=== PATIENT | female | born 1975 | race Caucasian/White ===

== ENCOUNTER 2017-11-02 12:16 | Inpatient (IN) | payer OTHER ==
[~2017-11-02] VITALS: Ht 157.5 cm; Wt 116.0 kg
[2017-11-02] VITALS (69 sets, daily range): BP systolic 95–151; BP diastolic 45–94; PULSE 65–108; RESP 16–22; TEMP 97.5–98.9
[~2017-11-02 12:16] MED LIST: IBUP600 PO; OXYC1SOL5 PO; PERI8.6T PO; PREN0.01 PO
[2017-11-02] MEDS ORDERED: LACTATED RINGER'S 1000 ML INJ 1,000 ML IV PRN (12:53)
[2017-11-02] MEDS ORDERED: OXYTOCIN 30 UNITS-500ML PREMIX 500 ML IV ONE (13:00)
[2017-11-02] MEDS ORDERED: OXYTOCIN 30 UNITS-500ML PREMIX 500 ML IV SCH ×2 (13:00→22:45)
[2017-11-02] MEDS ORDERED: CITRIC ACID-SODIUM CITRATE LIQ 30 ML UDC PO SCH (13:00)
[2017-11-02] MEDS ORDERED: MINERAL OIL 10 ML VIAL TOPICAL PRN (13:00)
[2017-11-02] MEDS ORDERED: LIDOCAINE HCL 1% 50 ML VIAL I-DERMAL PRN (13:00)
[2017-11-02] MEDS ORDERED: SODIUM CHLORID 0.9% 500 ML INJ 500 ML IV PRN (13:00)
[2017-11-02] MEDS ORDERED: LIDOCAINE HCL 1% 50 ML VIAL INFIL PRN (13:00)
[2017-11-02] MEDS ORDERED: SODIUM CHLOR 0.9% 1000 ML INJ 1,000 ML IV PRN (13:13)
[2017-11-02] MEDS ORDERED: PRENCHW (13:14)
[2017-11-02] MEDS: LACTATED RINGER'S 1000 ML INJ 1,000 ML IV SCH ×2 (13:16→16:12)
[2017-11-02 13:21] LABS: AUTOMATED NEUTROPHIL # 5.8 TH/MM3 (1.8-7.7); BASOPHIL % 0.3 % (0.0-2.0); EOSINOPHIL # 0.2 TH/MM3 (0-0.4); EOSINOPHIL % 2.1 % (0.0-4.0); HEMATOCRIT 34.9 % (35.0-46.0); HEMO FLAGS DIFF FINAL; LYMPH % 23.3 % (9.0-44.0); MEAN CELL VOLUME 83.8 FL (80.0-100.0); MEAN CORPUSCULAR HGB CONC 33.4 % (32.0-36.0); MONO % 6.3 % (0.0-8.0); PLATELET COUNT 178 TH/MM3 (150-450); RED BLOOD COUNT 4.17 MIL/MM3 (4.00-5.30); RED CELL DISTRIBUTION WIDTH 15.5 % (11.6-17.2); WHITE BLOOD COUNT 8.5 TH/MM3 (4.0-11.0)
[2017-11-02 13:29] LABS: BACTERIA, URINE FEW /hpf; BLOOD, URINE SMALL (NEG); COMMENT (UR) CULTURE INDICATED; CULTURE IF INDICATED CULTURE INDICATED; GLUCOSE,URINE NEG (NEG); KETONE, URINE NEG (NEG); MUCUS URINE FEW /lpf (OCC); NITRITE,URINE NEG (NEG); SQUAMOUS EPITHELIAL CELL URINE 28 /hpf (0-5); TRANSITIONAL EPI CELLS, URINE 1 /hpf; URINE COLOR YELLOW (YELLW/STRAW)
[2017-11-02] MEDS ORDERED: DIPHTH/TETANUS/ACEL PERTUSSIS (BOOSTER) 0.5 ML VIAL/PFS IM ONE (16:00)
[2017-11-02] MEDS ORDERED: MEASLES, MUMPS, RUBELLA VACCINE 0.5 ML VIAL SQ ONE (16:00)
[2017-11-02] MEDS ORDERED: fentaNYL 2MCG-BUPIV 0.125% INJ 100 ML ONE (16:07)
[2017-11-02] MEDS ORDERED: ePHEDrine/NS 25 MG/5 ML SYR ONE (16:08)
[2017-11-02] MEDS ORDERED: NO SYSTEM NARCOTICS PRN (17:00)
[2017-11-02] MEDS ORDERED: DO NOT ADMINISTER ANTICOAGULANTS PRN (17:00)
[2017-11-02] MEDS ORDERED: ePHEDrine/NS 25 MG/5 ML SYR IV PUSH PRN (17:00)
[2017-11-02] MEDS ORDERED: fentaNYL 2MCG-BUPIV 0.125% 100 ML EPIDURAL SCH (17:00)
--- NOTE | 2017-11-02 18:19 | HHI.HP ---
HPI Chief Complaint 38 wek IUP with hx of third trimester IUFD, low fluid and favorable Gomez's score Date Seen: Nov 02, 2017 Time Seen: 11:00 Travel History International Travel<30 Days: No Contact w/Intl Traveler<30Days: No Known Affected Area: No History of Present Illness HPI 42 yo mowf at 38 weeks by 8 weeks sonogroam oand 39 weeks by good LMP admitted for AROM and delivery. Had IUFD about 33 weeks last with no known etiology. surveillance of this infant reassuring but CHELSI 5 today. Cervix 3/50/-2 brought in for AROM. No leaking, bleeding. Mild UCs GFM. No symptoms of pre eclampsia. Class A1GDM well controlled on diet. 10 pound weight gain but increased baseline BMI. Had section for the breech IUFD after prolonged attempt to delivery vaginally. Desires History Past Medical History Narrative Medical as described Past Surgical History Narrative Surgical Section right oopherectomy Family History Family History: Negative Social History Alcohol Use: No Tobacco Use: No Substance Abuse: No Allergies-Medications (Allergen,Severity, Reaction): Coded Allergies: No Known Allergies (Verified Allergy, Unknown, 11/02/17) Home Meds Reported Medications Vit W/ Ferrous Fumara ( 19) 29 Mg Iron-1 Mg Chw 11/02/17 Discontinued Reported Medications Multivit/Min/Fol Ac/Iron/Pren ( Vit ( Plus)) Tab, 1 TAB PO DAILY, TAB 08/02/13 Discontinued Scripts Sennosides-Docusate Sodium (Heather-Colace 8.6-50 mg) 1 Tab Tab, 2 TAB PO Q12H Y for CONSTIPATION, #28 TAB 1 Refill Prov:Afua Puentes MD 12/19/15 Oxycodone W/ Acetaminophen (Oxycodone/Acetaminophen 5-325 mg/5Ml) 1 Tab Tab, 1 TAB PO Q4H Y for PAIN SCALE 1 TO 4, #30 TAB 0 Refills Prov:Afua Puentes MD 12/19/15 Ibuprofen (Motrin 600 Mg Tab) 600 Mg Tab, 600 MG PO Q6H Y for CRAMPING, #30 TAB 1 Refill Prov:Afua Puentes MD 1/27/16 Review of Systems General / Constitutional: No: Fever, Weight Gain, Chills, Other Physical Exam Vital Signs Date Time Temp Pulse Resp B/P (MAP) Pulse Ox O2 Delivery O2 Flow Rate FiO2 11/02/17 18:00 72 11/02/17 17:55 75 11/02/17 17:50 80 11/02/17 17:49 98.0 11/02/17 17:45 84 11/02/17 17:40 86 11/02/17 17:35 79 11/02/17 17:30 80 11/02/17 17:25 77 11/02/17 17:20 87 11/02/17 17:16 74 102/45 (64) 11/02/17 17:15 78 11/02/17 17:10 82 11/02/17 17:05 78 11/02/17 17:01 78 104/47 (66) 11/02/17 17:00 88 11/02/17 16:55 84 11/02/17 16:50 82 11/02/17 16:46 83 121/60 (80) 11/02/17 16:45 92 11/02/17 16:43 89 125/64 (84) 11/02/17 16:40 85 11/02/17 16:40 90 115/65 (82) 11/02/17 16:39 88 95/75 (82) 11/02/17 16:35 86 11/02/17 16:34 87 134/85 (101) 11/02/17 16:32 76 139/94 (109) 11/02/17 16:30 80 11/02/17 16:25 85 11/02/17 16:15 18 11/02/17 16:15 70 123/74 (90) 11/02/17 16:00 98.4 11/02/17 15:30 74 116/82 (93) 11/02/17 15:00 72 119/66 (83) 11/02/17 15:00 72 119/66 (83) 11/02/17 14:30 98.1 11/02/17 14:21 16 11/02/17 14:20 73 126/78 (94) 11/02/17 12:45 97.5 18 Narrative GENERAL: Well-nourished, well-developed patient. SKIN: Warm and dry. HEAD: Normocephalic and atraumatic. EYES: No scleral icterus. No injection or drainage. ENT: No nasal drainage noted. Mucous membranes pink. Airway patent. NECK: Supple, trachea midline. No JVD. CARDIOVASCULAR: Regular rate and rhythm without murmurs, gallops, or rubs. RESPIRATORY: Breath sounds equal bilaterally. No accessory muscle use. BREASTS: Bilateral exam showed no masses , no retractions, no nipple discharge. ABDOMEN/GI: Abdomen soft, non-tender, bowel sounds present, no rebound, no guarding 40 cm 3 cm/50/-1EFW 7 pounds vertex AROM clear at 1:00 Strip category one EXTREMITIES: No cyanosis or edema. BACK: Nontender without obvious deformity. No CVA tenderness. NEUROLOGICAL: Awake and alert. Motor and sensory grossly within normal limits. Five out of 5 muscle strength in all muscle groups. Normal speech. Caprini VTE Risk Assessment Caprini VTE Risk Assessment: No/Low Risk (score <= 1) Caprini Risk Assessment Model Point Value = 1 Point Value = 2 Point Value = 3 Point Value = 5 Age 41-60 Minor surgery BMI > 25 kg/m2 Swollen legs Varicose veins or History of unexplained or recurrent spontaneous Oral contraceptives or hormone replacement Sepsis (< 1 month) Serious lung disease, including pneumonia (< 1 month) Abnormal pulmonary function Acute myocardial infarction Congestive heart failure (< 1 month) History of inflammatory bowel disease Medical patient at bed rest Age 61-74 Arthroscopic surgery Major open surgery (> 45 min) Laparoscopic surgery (> 45 min) Malignancy Confined to bed (> 72 hours) Immobilizing plaster cast Central venous access Age >= 75 History of VTE Family history of VTE Factor V Leiden Prothrombin [id number] Lupus anticoagulant Anticardiolipin antibodies Elevated serum homocysteine Heparin-induced thrombocytopenia Other congenital or acquired thrombophilia Stroke (< 1 month) Elective arthroplasty Hip, pelvis, or leg fracture Acute spinal cord injury (< 1 month) Prophylaxis Regimen Total Risk Factor Score Risk Level Prophylaxis Regimen 0-1 Low Early ambulation 2 Moderate Order ONE of the following: *Sequential Compression Device (SCD) *Heparin 5000 units SQ BID 3-4 Higher Order ONE of the following medications: *Heparin 5000 units SQ TID *Enoxaparin/Lovenox 40 mg SQ daily (WT < 150 kg, CrCl > 30 mL/min) *Enoxaparin/Lovenox 30 mg SQ daily (WT < 150 kg, CrCl > 10-29 mL/min) *Enoxaparin/Lovenox 30 mg SQ BID (WT < 150 kg, CrCl > 30 mL/min) AND/OR *Sequential Compression Device (SCD) 5 or more Highest Order ONE of the following medications: *Heparin 5000 units SQ TID (Preferred with Epidurals) *Enoxaparin/Lovenox 40 mg SQ daily (WT < 150 kg, CrCl > 30 mL/min) *Enoxaparin/Lovenox 30 mg SQ daily (WT < 150 kg, CrCl > 10-29 mL/min) *Enoxaparin/Lovenox 30 mg SQ BID (WT < 150 kg, CrCl > 30 mL/min) AND *Sequential Compression Device (SCD) Data Data Orders Orders Admit To Inpatient (11/02/17 ) Code Status (11/02/17 12:53) Vital Signs (Adult) .Per protocol (11/02/17 12:53) Heart (11/02/17 12:53) Amnioinfusion (11/02/17 12:53) Urinary Catheter Management .ONCE (11/02/17 12:53) Diet Liquid (11/02/17 Lunch) Lactated Ringer's 1000 Ml Inj (Lr 1000 M (11/02/17 12:53) Lactated Ringer's 1000 Ml Inj (Lr 1000 M (11/02/17 12:53) Sodium Chlorid 0.9% 500 Ml Inj (Ns 500 M (11/02/17 13:00) Sodium Chlor 0.9% 1000 Ml Inj (Ns 1000 M (11/02/17 13:13) Lidocaine 1% Inj (50 Ml) (Xylocaine 1% I (11/02/17 13:00) Citric Acid-Sodium Citrate Liq (Bicitra (11/02/17 13:00) Fentanyl Inj (Fentanyl Inj) (11/02/17 13:00) Fentanyl Inj (Fentanyl Inj) (11/02/17 13:00) Complete Blood Count With Diff (11/02/17 12:53) Hold Clot (11/02/17 12:53) Abo/Rh Blood Type (11/02/17 12:53) Urinalysis - C+S If Indicated (11/02/17 12:53) Drug Screen, Random Urine (11/02/17 12:53) Resp Oxygen Non Rebreathe Mask (11/02/17 ) ^ Epidural / Intrathecal Infus (11/02/17 12:53) Oxytocin 30 Units-500ml Premix (Pitocin (11/02/17 13:00) Lidocaine 1% Inj (50 Ml) (Xylocaine 1% I (11/02/17 13:00) Light Mineral Oil (Muri-Lube Oil) (11/02/17 13:00) ^ Non Stress Test (11/02/17 12:53) Response To Medication .Post New Med Administration, Reaction (11/02/17 12:53) ^ Discontinue Medication (11/02/17 12:53) Oxytocin 30 Units-500ml Premix (Pitocin (11/02/17 13:00) Inpatient Certification (11/02/17 ) Specimen To Be Collected PRN (11/02/17 12:53) Specimen To Be Collected PRN (11/02/17 12:53) Urine Culture (11/02/17 12:55) Fentanyl 2mcg-Bupiv 0.125% Inj (Fentanyl (11/02/17 16:07) Ephedrine/Ns 25 Mg/5 Ml Syr (Ephedrine/N (11/02/17 16:08) Misc Nursing Information (11/02/17 17:00) Mis Nursing Information (11/02/17 17:00) Fentanyl Inj (Fentanyl Inj) (11/02/17 17:00) Fentanyl 2mcg-Bupiv 0.125% Inj (Fentanyl (11/02/17 17:00) Ephedrine/Ns 25 Mg/5 Ml Syr (Ephedrine/N (11/02/17 17:00) ^ Place On Chart (11/02/17 ) ^ Medication Indications (11/02/17 ) Consent (11/02/17 ) ^ No Systemic Narcotics (11/02/17 ) ^ Call Anesthesiologist (11/02/17 ) ^ Discontinue Epidural Cathete (11/02/17 ) Anticoagulant Alert (11/02/17 ) ^ Epidural Alert (11/02/17 ) Labs Laboratory Tests Test 11/02/17 12:55 White Blood Count 8.5 Red Blood Count 4.17 Hemoglobin 11.7 Hematocrit 34.9 Mean Corpuscular Volume 83.8 Mean Corpuscular Hemoglobin 28.0 Mean Corpuscular Hemoglobin Concent 33.4 Red Cell Distribution Width 15.5 Platelet Count 178 Mean Platelet Volume 8.7 Neutrophils (%) (Auto) 68.0 Lymphocytes (%) (Auto) 23.3 Monocytes (%) (Auto) 6.3 Eosinophils (%) (Auto) 2.1 Basophils (%) (Auto) 0.3 Neutrophils # (Auto) 5.8 Lymphocytes # (Auto) 2.0 Monocytes # (Auto) 0.5 Eosinophils # (Auto) 0.2 Basophils # (Auto) 0.0 CBC Comment DIFF FINAL Differential Comment Urine Color YELLOW Urine Turbidity HAZY Urine pH 7.0 Urine Specific [place] 1.017 Urine Protein TRACE Urine Glucose (UA) NEG Urine Ketones NEG Urine Occult Blood SMALL Urine Nitrite NEG Urine Bilirubin NEG Urine Urobilinogen LESS THAN 2.0 Urine Leukocyte Esterase LARGE Urine RBC 5 Urine WBC Urine Squamous Epithelial Cells 28 Urine Transitional Epithelial Cells 1 Urine Bacteria FEW Urine Mucus FEW Microscopic Urinalysis Comment CULTURE INDICATED Urine Opiates Screen NEG Urine Barbiturates Screen NEG Urine Amphetamines Screen NEG Urine Benzodiazepines Screen NEG Urine Cocaine Screen NEG Urine Cannabinoids Screen NEG Date/Time Source Procedure Growth Status 11/02/17 12:55 Urine Clean Catch Urine Culture Pending Received Assessment/Plan Problem List: (1) Obesity ICD Codes: E66.9 - Obesity Status: Acute (2) affecting management of mother ICD Codes: O36.4XX0 - Maternal care for intrauterine , not applicable or unspecified Status: Acute (3) Gestational diabetes ICD Codes: O24.419 - Gestational diabetes mellitus in , unspecified control Status: Acute (4) Status post primary low transverse section ICD Codes: Z98.89 - Other specified postprocedural states Status: Acute Assessment and Plan Anticipate successful TOLAC pitocin, epidural as needed. Nola Roger MD Nov 02, 2017 18:19
--- NOTE | 2017-11-02 18:21 | PD.LABORPN ---
Subjective Subjective comfortable after epidural Objective Vital Signs Vital Signs Date Time Temp Pulse Resp B/P (MAP) Pulse Ox O2 Delivery O2 Flow Rate FiO2 11/02/17 18:00 72 11/02/17 17:55 75 11/02/17 17:50 80 11/02/17 17:49 98.0 11/02/17 17:45 84 11/02/17 17:40 86 11/02/17 17:35 79 11/02/17 17:30 80 11/02/17 17:25 77 11/02/17 17:20 87 11/02/17 17:16 74 102/45 (64) 11/02/17 17:15 78 11/02/17 17:10 82 11/02/17 17:05 78 11/02/17 17:01 78 104/47 (66) 11/02/17 17:00 88 11/02/17 16:55 84 11/02/17 16:50 82 11/02/17 16:46 83 121/60 (80) 11/02/17 16:45 92 11/02/17 16:43 89 125/64 (84) 11/02/17 16:40 85 11/02/17 16:40 90 115/65 (82) 11/02/17 16:39 88 95/75 (82) 11/02/17 16:35 86 11/02/17 16:34 87 134/85 (101) 11/02/17 16:32 76 139/94 (109) 11/02/17 16:30 80 11/02/17 16:25 85 11/02/17 16:15 18 11/02/17 16:15 70 123/74 (90) 11/02/17 16:00 98.4 11/02/17 15:30 74 116/82 (93) 11/02/17 15:00 72 119/66 (83) 11/02/17 15:00 72 119/66 (83) 11/02/17 14:30 98.1 11/02/17 14:21 16 11/02/17 14:20 73 126/78 (94) 11/02/17 12:45 97.5 18 Objective 80%/5-6/-1 strip category one Weeks Gestation: 39 Gest Age Assessed Date: Nov 02, 2017 Gest Age Assessed Time: 18:20 Pt started active labor?: Yes Active labor start date: Nov 02, 2017 Active labor start time: 13:00 Medical induction of labor?: Yes Medical induction start date: Nov 02, 2017 Medical induction start time: 13:00 Artificial rupture of membrane: Yes Artificial ROM date: Nov 02, 2017 Artifical ROM time: 13:00 Assessment/Plan Problem List: (1) Obesity ICD Codes: E66.9 - Obesity Status: Acute (2) affecting management of mother ICD Codes: O36.4XX0 - Maternal care for intrauterine , not applicable or unspecified Status: Acute (3) Gestational diabetes ICD Codes: O24.419 - Gestational diabetes mellitus in , unspecified control Status: Acute (4) Status post primary low transverse section ICD Codes: Z98.89 - Other specified postprocedural states Status: Acute Nola Roger MD Nov 02, 2017 18:21
[2017-11-02] MEDS ORDERED: LIDOCAINE HCL 1.5% PF SOLN 20 ML AMP ONE (21:32)
--- NOTE | 2017-11-02 22:31 | PD.OB.DELI ---
Weeks gestation: 39 Gest age assessed date: Nov 02, 2017 Gest age assessed time: 18:20 Pt started active labor?: Yes Active labor start date: Nov 02, 2017 Active labor start time: 13:00 Medical induction of labor?: Yes Medical induction start date: Nov 02, 2017 Medical induction start time: 13:00 Artificial rupture of membrane: Yes Artificial ROM date: Nov 02, 2017 Artifical ROM time: 13:00 Anesthesia: Epidural Episiotomy: None Vaginal Delivery: Normal Presentation: Occiput anterior Nuchal Cord: x1 Delayed cord clamping (45 sec): No : Female Delivery date: Nov 02, 2017 Delivery time: 22:28 One Minute : 4 Five Minute : 8 Weight: 7 Placenta: Spontaneous delivery Laceration: No lacerations Estimated blood loss: 300 Additional Information tight nuchal cord resulted in terminal bradycardia and mom pushed once to deliver over intact pelvis. resuscitation quickly successful. Cord gas pending Mom and baby well Situation reviewed with parents Nola Roger MD Nov 02, 2017 22:31
[2017-11-02 22:37] LABS: BLOOD GAS BASE EXCESS -3.5 mmol/L (-2-2); BLOOD GAS O2 HGB SATURATION 86 % (90-100); CORD BLOOD GAS HCO3 20 mmol/L (21-29); CORD BLOOD GAS PCO2 30 mmHG (34-78); CORD BLOOD GAS PH 7.44 (7.14-7.42); CORD BLOOD GAS PO2 44 mmHG (3.0-40.0); DRAW SITE CORD BLOOD; STAT NO
[2017-11-02] MEDS ORDERED: WITCH HAZEL 50%/GLYCERIN 12.5% 40 PAD JAR TOPICAL PRN (22:45)
[2017-11-02] MEDS ORDERED: ACETAMINOPHEN 325 MG TAB PO PRN (22:45)
[2017-11-02] MEDS ORDERED: ONDANSETRON ODT 4 MG TAB PO PRN (22:45)
[2017-11-02] MEDS ORDERED: SODIUM CHLORIDE 0.9% FLUSH 10 ML FLUSH IV FLUSH PRN (22:45)
[2017-11-02] MEDS ORDERED: DOCUSATE SODIUM 50 MG/SENNA 8.6 MG TAB PO PRN (22:45)
[2017-11-02] MEDS ORDERED: ZOLPIDEM TARTRATE 5 MG TAB PO PRN (22:45)
[2017-11-02] MEDS ORDERED: BENZOCAINE 20% TOPICAL SPRAY 60 ML CAN TOPICAL PRN (22:45)
[2017-11-02] MEDS ORDERED: ALUMINUM/MAGNESIUM/SIMETH 30 ML CUP PO PRN (22:45)
[2017-11-03 08:00] VITALS: BP 118/72; PULSE 80; RESP 20; TEMP 98.6
--- NOTE | 2017-11-03 08:56 | HHI.OB ---
Subjective Post Day: 1 Remarks doing well, breast feeding Objective Vitals/I&O Vital Signs Date Time Temp Pulse Resp B/P (MAP) Pulse Ox O2 Delivery O2 Flow Rate FiO2 11/03/17 08:00 98.6 80 20 118/72 (87) 11/02/17 23:37 127/78 (94) 11/02/17 23:37 86 11/02/17 23:31 95 11/02/17 23:31 122/93 (103) 11/02/17 23:16 112/87 (95) 11/02/17 23:02 65 18 105/87 (93) 11/02/17 22:50 98.9 11/02/17 22:50 20 11/02/17 22:46 92 102/57 (72) 11/02/17 22:35 20 11/02/17 22:31 108 11/02/17 22:31 99/82 (88) 11/02/17 22:01 151/94 (113) 11/02/17 22:01 80 11/02/17 21:46 87 11/02/17 21:46 141/89 (106) 11/02/17 21:43 147/88 (107) 11/02/17 21:43 82 11/02/17 21:36 87 140/86 (104) 11/02/17 21:32 22 11/02/17 21:31 83 143/91 (108) 11/02/17 21:15 98.4 11/02/17 21:14 20 11/02/17 21:01 92 11/02/17 21:01 125/84 (98) 11/02/17 20:45 18 11/02/17 20:31 76 115/76 (89) 11/02/17 20:06 20 11/02/17 20:01 89 120/57 (78) 11/02/17 19:45 20 11/02/17 19:31 76 120/72 (88) 11/02/17 19:05 18 11/02/17 19:05 76 11/02/17 19:01 83 118/73 (88) 11/02/17 18:55 87 11/02/17 18:30 103/63 (76) 11/02/17 18:25 81 11/02/17 18:20 73 11/02/17 18:15 80 11/02/17 18:10 83 11/02/17 18:05 73 11/02/17 18:01 77 99/51 (67) 11/02/17 18:00 72 11/02/17 18:00 16 11/02/17 17:55 75 11/02/17 17:50 80 11/02/17 17:49 98.0 11/02/17 17:45 84 11/02/17 17:40 86 11/02/17 17:35 79 11/02/17 17:30 80 11/02/17 17:25 77 11/02/17 17:20 87 11/02/17 17:16 74 102/45 (64) 11/02/17 17:15 78 11/02/17 17:10 82 11/02/17 17:05 78 11/02/17 17:01 78 104/47 (66) 11/02/17 17:00 88 11/02/17 16:55 84 11/02/17 16:50 82 11/02/17 16:46 83 121/60 (80) 11/02/17 16:45 92 11/02/17 16:43 89 125/64 (84) 11/02/17 16:40 85 11/02/17 16:40 90 115/65 (82) 11/02/17 16:39 88 95/75 (82) 11/02/17 16:35 86 11/02/17 16:34 87 134/85 (101) 11/02/17 16:32 76 139/94 (109) 11/02/17 16:30 80 11/02/17 16:25 85 11/02/17 16:15 18 11/02/17 16:15 70 123/74 (90) 11/02/17 16:00 98.4 11/02/17 15:30 74 116/82 (93) 11/02/17 15:00 72 119/66 (83) 11/02/17 15:00 72 119/66 (83) 11/02/17 14:30 98.1 11/02/17 14:21 16 11/02/17 14:20 73 126/78 (94) 11/02/17 12:45 97.5 18 Objective Remarks GENERAL: Well-nourished, well-developed patient. CARDIOVASCULAR: Regular rate and rhythm without murmurs, gallops, or rubs. RESPIRATORY: Breath sounds equal bilaterally. No accessory muscle use. ABDOMEN/GI: Abdomen soft, non-tender. Fundus: Firm, non-tender at umbilicus. GENITOURINARY: Light to moderate bleeding. EXTREMITIES: No cyanosis or edema, non-tender, without signs of DVT. Medications and IVs Current Medications Medications (Trade) Dose Ordered Sig/Malorie Route Start Time Stop Time Status Last Admin Lactated Ringer's 1,000 ml @ 125 mls/hr Q8H IV 11/02/17 12:53 11/02/17 16:12 Lactated Ringer's 1,000 ml @ 3,000 mls/hr Q20M PRN IV 11/02/17 12:53 Sodium Chloride 500 ml @ 1,000 mls/hr ONCE PRN IV 11/02/17 13:00 11/04/17 12:59 Sodium Chloride 1,000 ml @ 100 mls/hr Q10H PRN IV 11/02/17 13:13 (Xylocaine 1% Inj (50 ml)) 0.1 ml UNSCH X1 PRN I-DERMAL 11/02/17 13:00 11/05/17 12:59 (Bicitra Liq) 30 ml UNDER GROUND MINER PO 11/02/17 13:00 11/06/17 12:59 (fentaNYL INJ) 50 mcg Q1H PRN IV PUSH 11/02/17 13:00 (fentaNYL INJ) 100 mcg Q1H PRN IV PUSH 11/02/17 13:00 (Xylocaine 1% Inj (50 ml)) 10 ml UNSCH X1 PRN INFIL 11/02/17 13:00 11/04/17 12:59 (Muri-Lube Oil) 10 ml UNSCH PRN TOPICAL 11/02/17 13:00 Oxytocin 500 ml @ 0 mls/hr TITRATE IV 11/02/17 13:00 11/02/17 14:19 Miscellaneous Information No systemic narcotics to be given except... UNSCH PRN .XX 11/02/17 17:00 11/03/17 16:59 Miscellaneous Information DO NOT ADMINISTER ANY ANTICOAGUL... UNSCH PRN .XX 11/02/17 17:00 11/03/17 16:59 Fentanyl/ Bupivacaine HCl 100 ml @ 10 mls/hr TITRATE EPIDURAL 11/02/17 17:00 (ePHEDrine/NS 25 MG/5 ML SYR) 10 mg UNSCH PRN IV PUSH 11/02/17 17:00 11/03/17 16:59 (NS Flush) 2 ml BID IV FLUSH 11/03/17 09:00 (NS Flush) 2 ml UNSCH PRN IV FLUSH 11/02/17 22:45 (Tylenol) 650 mg Q4H PRN PO 11/02/17 22:45 (Motrin) 800 mg Q8H PRN PO 11/02/17 22:45 (Americaine 20% Top Spr) 1 spray Q4H PRN TOPICAL 11/02/17 22:45 11/03/17 01:00 (Tucks Pads) 1 applic QID PRN TOPICAL 11/02/17 22:45 11/03/17 01:00 (Heather-Colace) 2 tab Q12H PRN PO 11/02/17 22:45 (Ambien) 5 mg HS PRN PO 11/02/17 22:45 (Mag-Al Plus Susp Liq) 15 ml Q8H PRN PO 11/02/17 22:45 (Zofran Odt) 4 mg Q6H PRN PO 11/02/17 22:45 Assessment/Plan Problem List: (1) Obesity ICD Codes: E66.9 - Obesity Status: Acute (2) Gestational diabetes ICD Codes: O24.419 - Gestational diabetes mellitus in , unspecified control Status: Acute Assessment and Plan PPD 1 s/p Rh neg in hospital - will order K-B to assess rhogam need Ashley Starr MD Nov 03, 2017 08:56
[2017-11-03] MEDS ORDERED: SODIUM CHLORIDE 0.9% FLUSH 10 ML FLUSH IV FLUSH SCH (09:00)
[2017-11-03] MEDS: IBUPROFEN 800 MG TAB PO PRN ×2 (10:51→19:25)
[2017-11-03 20:05] VITALS: BP 133/83; PULSE 87; RESP 16; TEMP 97.9
[2017-11-04] MEDS: IBUPROFEN 800 MG TAB PO PRN ×2 (05:38→11:52)
[2017-11-04 07:55] VITALS: BP 114/79; PULSE 79
[2017-11-04 07:56] VITALS: RESP 16; TEMP 97.8
--- NOTE | 2017-11-04 11:28 | HHI.OB ---
Subjective Post Day: 2 Remarks PPD#2, stable, breast feeding well, doing well Objective Vitals/I&O Vital Signs Date Time Temp Pulse Resp B/P (MAP) Pulse Ox O2 Delivery O2 Flow Rate FiO2 11/04/17 07:56 16 11/04/17 07:56 97.8 11/04/17 07:55 79 114/79 (91) 11/03/17 20:05 133/83 (100) 11/03/17 20:05 97.9 87 16 Objective Remarks GENERAL: Well-nourished, well-developed patient. CARDIOVASCULAR: Regular rate and rhythm without murmurs, gallops, or rubs. RESPIRATORY: Breath sounds equal bilaterally. No accessory muscle use. ABDOMEN/GI: Abdomen soft, non-tender. Fundus: Firm, non-tender at umbilicus. GENITOURINARY: Light to moderate bleeding. EXTREMITIES: No cyanosis or edema, non-tender, without signs of DVT. Medications and IVs Current Medications Medications (Trade) Dose Ordered Sig/Malorie Route Start Time Stop Time Status Last Admin Lactated Ringer's 1,000 ml @ 125 mls/hr Q8H IV 11/02/17 12:53 11/02/17 16:12 Lactated Ringer's 1,000 ml @ 3,000 mls/hr Q20M PRN IV 11/02/17 12:53 Sodium Chloride 500 ml @ 1,000 mls/hr ONCE PRN IV 11/02/17 13:00 11/04/17 12:59 Sodium Chloride 1,000 ml @ 100 mls/hr Q10H PRN IV 11/02/17 13:13 (Xylocaine 1% Inj (50 ml)) 0.1 ml UNSCH X1 PRN I-DERMAL 11/02/17 13:00 11/05/17 12:59 (Bicitra Liq) 30 ml SEARCH ENGINE OPTIMIZATION ANALYST PO 11/02/17 13:00 11/06/17 12:59 (fentaNYL INJ) 50 mcg Q1H PRN IV PUSH 11/02/17 13:00 (fentaNYL INJ) 100 mcg Q1H PRN IV PUSH 11/02/17 13:00 (Xylocaine 1% Inj (50 ml)) 10 ml UNSCH X1 PRN INFIL 11/02/17 13:00 11/04/17 12:59 (Muri-Lube Oil) 10 ml UNSCH PRN TOPICAL 11/02/17 13:00 Oxytocin 500 ml @ 0 mls/hr TITRATE IV 11/02/17 13:00 11/02/17 14:19 Fentanyl/ Bupivacaine HCl 100 ml @ 10 mls/hr TITRATE EPIDURAL 11/02/17 17:00 (NS Flush) 2 ml BID IV FLUSH 11/03/17 09:00 (NS Flush) 2 ml UNSCH PRN IV FLUSH 11/02/17 22:45 (Tylenol) 650 mg Q4H PRN PO 11/02/17 22:45 (Motrin) 800 mg Q8H PRN PO 11/02/17 22:45 11/04/17 05:38 (Americaine 20% Top Spr) 1 spray Q4H PRN TOPICAL 11/02/17 22:45 11/03/17 01:00 (Tucks Pads) 1 applic QID PRN TOPICAL 11/02/17 22:45 11/03/17 01:00 (Heather-Colace) 2 tab Q12H PRN PO 11/02/17 22:45 (Ambien) 5 mg HS PRN PO 11/02/17 22:45 (Mag-Al Plus Susp Liq) 15 ml Q8H PRN PO 11/02/17 22:45 (Zofran Odt) 4 mg Q6H PRN PO 11/02/17 22:45 Assessment/Plan Problem List: (1) Obesity ICD Codes: E66.9 - Obesity Status: Acute (2) Gestational diabetes ICD Codes: O24.419 - Gestational diabetes mellitus in , unspecified control Status: Acute Assessment and Plan PPD 1 s/p Stable, will discharge home today, reinforced glucose monitoring Discharge Planning routine Attending Attestation seen by Storm Gtz MD Nov 04, 2017 11:28
--- NOTE | 2017-11-04 11:29 | HHI.DS ---
Admission Date Nov 02, 2017 at 12:16 Admitting Diagnosis Diagnosis: Delivery Date: Nov 02, 2017 Vaginal Delivery: : Female Brief History 42 yo mowf at 38 weeks by 8 weeks sonogroam oand 39 weeks by good LMP admitted for AROM and delivery. Had IUFD about 33 weeks last infant with no known etiology. surveillance of this infant reassuring but CHELSI 5 today. Cervix 3/50/-2 brought in for AROM. No leaking, bleeding. Mild UCs GFM. No symptoms of pre eclampsia. Class A1GDM well controlled on diet. 10 pound weight gain but increased baseline BMI. Had section for the breech IUFD after prolonged attempt to delivery vaginally. Desires Pt Condition on Discharge: Good Discharge Disposition: Discharge Home Discharge Instructions Diet Instructions: Diabetic Diet Activities You Can Perform: Shower Only-No Bath Activities to Avoid: Driving for 24 hrs, Prolonged Standing, Strenuous Activity , Sexual Activity Storm Friend MD Nov 04, 2017 11:29
== END 2017-11-04 13:20 | disposition home or self-care (01) | DRG 775 ==
LOC: H2EB 12:16 → H1EA 11-03 00:45
PROVIDERS: ADMIT Obstetrics & Gynecology; ATTEND Obstetrics & Gynecology
PROC: 10E0XZZ Delivery of Products of Conception, External Approach (ICD-10-PCS; principal; 2017-11-02)
PROC: 3E0P3VZ Introduction of Hormone into Female Reproductive, Percutaneous Approach (ICD-10-PCS; 2017-11-02)
PROC: 10907ZC Drainage of Amniotic Fluid, Therapeutic from Products of Conception, Via Natural or Artificial Opening (ICD-10-PCS; 2017-11-02)
DX: O24.420 Gestational diabetes mellitus in childbirth, diet controlled (principal); Z68.42 Body mass index [BMI] 45.0-49.9, adult; O99.214 Obesity complicating childbirth; O34.211 Maternal care for low transverse scar from previous cesarean delivery; O69.1XX0 Labor and delivery complicated by cord around neck, with compression, not applicable or unspecified; O76 Abnormality in fetal heart rate and rhythm complicating labor and delivery; Z3A.39 39 weeks gestation of pregnancy; Z37.0 Single live birth
CPT/HCPCS: 59025; 80307; 81001; 82805; 83030; 85025; 85461; 86077; 86850; 86870; 86886; 86900; 86901; 86902; 87086; 90384; J2590; J2790; J7120